=== PATIENT | male | born 2005 | race Caucasian/White ===

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

== ENCOUNTER 2023-06-29 11:20 | Emergency (ER) | payer BC, SELFPAY ==
[2023-06-29 11:44] VITALS: BP 110/52; PULSE 71; RESP 16; TEMP 36.3; O2SAT 98; BMI 25.8
[2023-06-29 13:26] VITALS: BP 144/78; PULSE 71; RESP 18; TEMP 36.5; O2SAT 99
== END 2023-06-29 15:28 | disposition left against medical advice (07) ==
PROVIDERS: Emergency Provider Emergency Medicine
DX: Z53.21 Procedure and treatment not carried out due to patient leaving prior to being seen by health care provider (principal)

== ENCOUNTER 2023-06-29 18:24 | Emergency (ER) | payer BC, SELFPAY ==
[2023-06-29 18:28] VITALS: BP 139/55; PULSE 63; RESP 16; TEMP 36.6; O2SAT 96; BMI 25.8
--- NOTE | 2023-06-29 18:56 | CRLHL7_ITS ---
For Patients: As a result of the Century Cures Act, medical imaging exams and procedure reports are released immediately into your electronic medical record. You may view this report before your referring provider. If you have questions, please contact your health care provider. INDICATION: Trauma. TECHNIQUE: Noncontrast CT images acquired through the brain. COMPARISON: None. FINDINGS The ventricles and sulci are within normal limits for patient age. No mass effect or midline shift. The porter-white differentiation is maintained. No acute intracranial hemorrhage or pathologic extra-axial fluid collection. The globes are symmetric. The calvarium is intact. Mild mucosal thickening in the maxillary sinuses. The mastoid air cells are clear. IMPRESSION: No acute intracranial hemorrhage or mass effect. Please note that all CT scans at this facility use dose modulation, iterative reconstruction, and/or weight-based dosing when appropriate to reduce radiation dose to as low as reasonably achievable. Dictated by Severino Lui MD @ 06/29/2023 7:52:59 PM (Electronically Signed)
[2023-06-29] MEDS: ONDANSETRON ODT 4 MG TAB PO (19:01)
--- NOTE | 2023-06-29 19:02 | ED_ITS ---
HPI - General Adult General Date Seen: 06/29/23 Chief complaint: Syncope/Fainted Stated complaint: Dizzy, fainted and fell earlier today Time Seen by Provider: 06/29/23 18:29 History of Present Illness HPI narrative: This is a 18-year-old male presenting to the ER today with concern for nausea after head injury and a fainting spell. She has a past medical history of multiple previous fainting spells. According to the patient and his mother he has had a previous extensive cardiac and neurologic workup. He thought to have POTS leading to his fainting spells. They are not concerned about the fainting spell, of itself, that occurred this morning. They were more concerned about potential brain injury or concussion. Patient has been studying hard lately for finals. He knows that he has been short on sleep and has of a eating and drinking very well. He was in class this morning. While in class he began to feel somewhat shaky, dizzy, anxious, as he has had felt in the past before fainting. He he tried to sit down in a chair but apparently fainted right around the time he sat on the chair. It sounds like he fell over backwards and struck the right side of the occiput of his head against the metal edge of a chalkboard tray in his classroom. It he does not know exactly how long he was out but it was long enough for his classmates to clear out of the classroom. When he came to he was initially somewhat groggy, but that is typical for him after he faints. Since then he did have some nausea and a mild occipital headache. He came to the ER earlier today for evaluation but left because our ER wait time was too long. He was feeling better at that point with no ongoing symptoms. Since this afternoon has gone on he now feels more nauseous. He is really having minimal to no ongoing headache. No other symptoms. No blurry vision. No diplopia. No pain in his neck. No numbness or tingling in his arms or legs. No confusion. Normal memory. He has not vomited but he is somewhat nauseous. He says he just feels fatigued and wants to lay down. No other symptoms with the fainting spell such as severe headache, chest pain, palpitations. No other recent illnesses such as vomiting or diarrhea, cough or fever, or shortness of breath. Related Data Home Medications Medication Instructions Recorded Confirmed No Known Home Medications 06/17/22 06/29/23 Allergies Allergy/AdvReac Type Severity Reaction Status Date / Time No Known Drug Allergies Allergy Verified 06/29/23 11:50 [facility] Social History Smoking Status: Former smoker Do you use any of these nicotine containing products: None Second hand tobacco smoke exposure: No How often do you have a drink containing alcohol: monthly or less AUDIT-C Alcohol total score: 1 Non-prescribed substance use: marijuana (any form) and other Non-prescribed substance use details: mushrooms Exam Narrative: Exam Narrative: Constitutional: Appears well-developed and well-nourished. Alert. Conversant. Non toxic. HENT: Head: Mild tenderness over the mastoid process behind the right ear but no definite swelling there. No bony crepitus. No raccoon eyes or Olivarez sign. Nose: Nose normal. Mouth/Throat: Oral mucosa is clear and moist. no trismus. Pharynx normal. Tonsils symmetric. No tonsillar enlargement, erythema, or exudate. Eyes: Conjunctivae normal. EOM normal. Pupils equal, round, and reactive to light. No scleral icterus. Neck: Normal range of motion. Neck supple. No tracheal deviation present. Cardiovascular: Normal rate, regular rhythm. No gallop. No friction rub. No murmur heard. Symmetric radial artery pulses Pulmonary/Chest: Effort normal. No stridor. No respiratory distress. No wheezes. No rales. No rhonchi . No tenderness. Abdominal: Soft. Bowel sounds normal. No distension. No mass. No tenderness. No rebound. No guarding. Musculoskeletal: RUE: Normal range of motion. No tenderness. No deformity LUE: Normal range of motion. No tenderness. No deformity RLE: Normal range of motion. No edema. No tenderness. No deformity LLE: Normal range of motion. No edema. No tenderness. No deformity Lymph: No cervical adenopathy. Neurological: Mental status normal. Attention normal. Alert and oriented x3. GCS 15. Memory normal. Speech fluent. Cognition normal. Cranial Nerves intact II-XII except I did not formally test gag or visual acuity. EOMI. Palate elevates symmetrically and tongue protrudes in the midline. Strength: 5/5 trapezius on the right and left 5/5 deltoid on the right and left 5/5 biceps on the right and left 5/5 triceps on the right and left 5/5 compensation manager on the right and left 5/5 thumb opposition on the right and le ft 5/5 finger abduction on the right and le ft 5/5 hip flexors (L3) on the right and le ft 5/5 quadriceps (L4) on the right and lef t 5/5 tibialis anterior on the right and l eft 5/5 EHL (L5) on the right and left 5/5 gastrocnemius (S1) on the right and left 5/5 hamstring on the right and left Sensation intact to light touch in both upper extremities (C4-T1) Sensation intact to light touch in Both lower extremities (L4-S1). Finger to nose and coordination normal. Gait normal. Skin: Skin is warm and dry. No rash noted. No pallor. Normal capillary refill. Psychiatric: Normal mood. Normal affect. Const: Vital Signs, click to edit/add: Vital Signs - 24 hr 06/29/23 18:28 06/29/23 19:46 Temperature 98 F Pulse Rate 66 Pulse Rate [Pulse Oximeter] 63 Respiratory Rate 16 16 Blood Pressure 117/65 Blood Pressure [Le ft Upper Arm] 139/55 L Pulse Oximetry 96 96 Oxygen Delivery Me thod Room Air Course Vital Signs Vital signs: Initial Vital Signs Temperature 98 F 06/29/23 18:28 Temperature Source Temporal Artery Scan 06/29/23 18:28 Pulse Rate 63 06/29/23 18:28 Respiratory Rate 16 06/29/23 18:28 Blood Pressure 139/55 L 06/29/23 18:28 Blood Pressure Mean 83 06/29/23 18:28 Blood Pressure Position Supine 06/29/23 18:28 Pulse Oximetry 96 06/29/23 18:28 Oxygen Delivery Method Room Air 06/29/23 18:28 Vital Signs Temperature 98 F 06/29/23 18:28 Pulse Rate 63 06/29/23 18:28 Respiratory Rate 16 06/29/23 18:28 Blood Pressure 139/55 L 06/29/23 18:28 Pulse Oximetry 96 06/29/23 18:28 Oxygen Delivery Method Room Air 06/29/23 18:28 Temperature 98 F 06/29/23 18:28 Pulse Rate 66 06/29/23 19:46 Respiratory Rate 16 06/29/23 19:46 Blood Pressure 117/65 06/29/23 19:46 Pulse Oximetry 96 06/29/23 19:46 Oxygen Delivery Method Room Air 06/29/23 18:28 Medications Administered Medications: Discontinued Medications Generic Name Dose Route Start Last Admin Trade Name Terry PRN Reason Stop Dose Admin Ondansetron HCl 4 mg 06/29/23 18:56 06/29/23 19:01 Ondansetron Odt 4 Mg Tab PO 06/29/23 18:57 4 mg ONCE ONE Administration Medical Decision Making MDM Narrative Medical decision making narrative: This patient presents for evaluation of a syncopal event that occurred this morning while he was in class. He struck the back of his head against the edge of a chalkboard tray when he fainted.. A broad differential was considered. History provided suggests a benign cause of syncope he has a long history of f requent syncopal events similar to this morning. He has had extensive previous cardiac and neurologic workup and has been diagnosed presumptively with POTS. Here in the ER today, he hasNo murmurs . Initial ECG shows normal sinus rhythm and no dysrhythmogenic abnormality such as WPW, prolonged QT, Brugada syndrome, and no ischemia. No symptoms/findings concerning for cardiac ischemia or ACS . No headache or other neurologic symptoms to suggest subarachnoid , stroke . The EKG, physical exam in ED shows low risk for dangerous cause of the patient's syncope, and no risks factors to warrant admission. Ultimately he and his mother are concerned about the syncope, it has been exhaustively worked up already. They were concerned about the potential for head injury. This patient presents with blunt head trauma. Differential includes intracranial injuries (e.g. skull fracture, epidural hematoma, subdural hematoma, intracerebral hemorrhage, and traumatic subarachnoid hemorrhage), verses concussion or other traumatic brain injury. Discussed concussion versus intracranial hemorrhage. Patient is low risk by [place] head CT rule. However in discussion with the patient and his mother (by phone) they were very worried and wanted us to obtain CT. CT imaging was obtained and fortunately was normal. At this time it appears that the patient's symptoms are due to a concussion. The patient/family understand that they must return if any red flags appear/develop in the coming hours/days, as this may represent an indication to perform a repeat CT scan or further evaluation. I have noted that red flags include: headaches that get worse, increased drowsiness, strange behavior, repetitive speech, seizures, repeated vomiting, growing confusion, increased irritability, slurred speech, weakness or numbness, and loss of responsiveness. This information will also be provided in writing at discharge. I have discussed the second impact syndrome, and the importance of not sustaining repeated concussion in the next 1-2 weeks. Post concussive syndrome is also discussed. The patient's questions have been answered. They have a responsible adult to accompany them home. Clinical judgement suggests that supportive outpatient management is indicated. Recommend follow up with . Questions answered and return precautions given Imaging Data CT scan - head: Attestation: I have reviewed the pertinent imaging results. Radiologist's impression: IMPRESSION: No acute intracranial hemorrhage or mass effect. Discharge Plan Discharge Clinical Impression: Concussion, Syncope Patient Disposition: Home, Self-Care Condition: Stable Instructions: Syncope (DC), Concussion (ED) Additional Instructions: As we discussed, please return to the ER if you have any problems such as worsening nausea or vomiting, headache, confusion, more fainting spells, or any concerns. With her in caution you should avoid dangerous activities for the next 2 weeks. You may need more time to complete your course work in finals if doing activities such is studying, computer work, or cognitive tasks exacerbate your symptoms. Please follow-up with your regular doctor or with the [facility] for a recheck in 7 days if you are not completely improved Prescriptions: No Action No Known Home Medications Follow Up/Referrals: Provider,Not a Local [Primary Care Provider] - Stand Alone Forms: Spool Info Instructions
[2023-06-29 19:46] VITALS: BP 117/65; PULSE 66; RESP 16; O2SAT 96
--- NOTE | 2023-06-29 19:55 | PC.NURSE ---
More than 30 hospitals have been called including rural hospitals to see if there are any inpatient beds and inpatient dialysis. They are either all at capacity or do not have dialysis. [facility] are at [facility], [facility], [facility] at [facility], [place] at capacity, [facility] at capacity, [facility] at capacity. Relayed information to Dr. Farr who will reach out to the hospitalist to see about admission
--- NOTE | 2023-06-29 20:52 | PC.NURSE ---
patient DC ambulatory, symptoms have resolved. DC instruction gone over with patient, he has not futher questions.
== END 2023-06-29 20:55 | disposition home or self-care (01) ==
PROVIDERS: Emergency Provider Emergency Medicine
DX: S06.0X0A Concussion without loss of consciousness, initial encounter (principal); W18.30XA Fall on same level, unspecified, initial encounter; R55 Syncope and collapse
CPT/HCPCS: 70450; 99284; A9270